=== PATIENT | female | born 1965 | race African-American/Black ===

== ENCOUNTER 2018-02-08 08:11 | Day surgery (SDC) | payer OTHER ==
[2018-01-31 10:56] VITALS: BMI 28.3
[2018-02-08] MEDS ORDERED: BUPIVACAINE HCL/PF 0.5% (5MG/ML) 10 ML VIAL ONE (09:31)
[2018-02-08] MEDS ORDERED: MIDAZOLAM HCL 2 MG/2 ML SINGLE DOSE VIAL ONE ×2 (09:53)
--- NOTE | 2018-02-08 09:53 | HP ---
Admitting History and Physical - Admission Chief Complaint: RUQ abdominal pain History of Present Illness: 52 y.o female with chronic RUQ pain radiating to the back aggravated by fatty meals. US showed no gallstones, HIDA with EF showed biliary hyperkinesia. Abdominal pain persisted after a reasonable period of observation, so was advised cholecystectomy History Source: Patient Limitations to Obtaining History: No Limitations - Past Medical History ...LMP Comment: partial hysterectomy - Past Surgical History Past Surgical History: Yes: Hysterectomy - Smoking History Smoking history: Current every day smoker Have you smoked in the past 12 months: Yes Aproximately how many cigarettes per day: 10 If you are a former smoker, when did you quit?: 01/11/15 - Alcohol/Substance Use Hx Alcohol Use: Yes (occas) Home Medications - Allergies Allergies/Adverse Reactions: Allergies Allergy/AdvReac Type Severity Reaction Status Date / Time No Known Allergies Allergy Verified 02/07/18 11:14 - Home Medications Home Medications: Ambulatory Orders Amitriptyline HCl [Elavil -] 50 mg PO HS 03/24/14 Atorvastatin Ca [Lipitor -] 40 mg PO HS 03/24/14 Ergocalciferol [Drisdol -] 50,000 unit PO WEEKLY 03/24/14 Gabapentin 800 mg PO QID 03/24/14 Oxycodone HCl 10 mg PO TID PRN MDD 3 03/24/14 Vitamin B Complex [B Complex] 1 each PO DAILY 03/24/14 Budesonide/Formeterol Fumarate [SYMBICORT 160/4.5mcg -] 1 inhaler IH DAILY 02/07 Ipratropium/Albuterol Sulfate [Combivent Respimat 20-100 Mcg] 1 puff IN PRN PRN 02/07/18 Losartan Potassium 100 mg PO DAILY 02/08/18 Nifedipine [Nifedipine ER] 60 mg PO DAILY 02/08/18 Pantoprazole Sodium 40 mg PO DAILY 02/08/18 Family Disease History - Family Disease History Family Disease History: Heart Disease: Mother, CA: Father, Brother Physical Examination Vital Signs: Vital Signs Temperature 98.6 F 02/08/18 08:44 Pulse Rate 104 H 02/08/18 08:44 Respiratory Rate 20 02/08/18 08:44 Blood Pressure 129/87 02/08/18 08:44 O2 Sat by Pulse Oximetry (%) 99 02/08/18 08:44 Constitutional: Yes: Well Nourished, No Distress HENT: Yes: WNL Neck: Yes: WNL Cardiovascular: Yes: Regular Rate and Rhythm Respiratory: Yes: CTA Bilaterally Gastrointestinal: Yes: Normal Bowel Sounds, Soft, Tenderness (mild at RUQ) ...Rectal Exam: Yes: Deferred Musculoskeletal: Yes: WNL Extremities: Yes: WNL Edema: No Integumentary: Yes: WNL Neurological: Yes: Alert, Oriented Imaging - Results Ultrasound: Report Reviewed, Image Reviewed Other: Report Reviewed, Image Reviewed (HIDA scan with EF) Problem List - Problems (1) Acalculous cholecystitis Assessment/Plan: Laparoscopic cholecystectomy Code(s): K81.9 - CHOLECYSTITIS, UNSPECIFIED (2) Biliary dyskinesia Assessment/Plan: Laparoscopic cholecystectomy Code(s): K82.8 - OTHER SPECIFIED DISEASES OF GALLBLADDER
[2018-02-08] MEDS ORDERED: ROCURONIUM BROMIDE 50 MG/5 ML VIAL ONE ×2 (10:00)
[2018-02-08] MEDS ORDERED: PROPOFOL 20 ML ONE (10:01)
[2018-02-08] MEDS ORDERED: ceFAZolin SODIUM 1 GM VIAL IVPB ONE (10:02)
[2018-02-08] MEDS ORDERED: LIDOCAINE HCL/PF 2% SDV 5ML VIAL ONE (10:10)
[2018-02-08] MEDS ORDERED: DEXAMETHASONE SOD PHOSPHATE 4 MG/1 ML VIAL ONE (10:10)
[2018-02-08] MEDS ORDERED: GLYCOPYRROLATE 0.2 MG/1 ML VIAL ONE (10:10)
[2018-02-08] MEDS ORDERED: ceFAZolin SODIUM 1 GM VIAL ONE (10:10)
[2018-02-08] MEDS ORDERED: BUPIVACAINE HCL/PF (5 MG/ML) 30 ML VIAL IJ ONE (10:19)
[2018-02-08] MEDS ORDERED: NEOSTIGMINE METHYLSULFATE 0.5 MG/ML - 10 ML MDV ONE (10:49)
--- NOTE | 2018-02-08 11:04 | OP ---
Operative Note - Note: Operative Date: 02/08/18 Pre-Operative Diagnosis: Chronic acalculous cholecystitis with biliary hyperkinesia Operation: Laparoscopic cholecystectomy Findings: gallbladder with no palpable stones Post-Operative Diagnosis: Same as Pre-op Surgeon: Charan Davis Chief Lock Operator: Khadijah Wu Anesthesia: General Specimens Removed: gallbladder Estimated Blood Loss (mls): 2 Operative Report Dictated: Yes
[2018-02-08] MEDS ORDERED: PROMETHAZINE HCL 25 MG/1 ML VIAL IVPUSH PRN (11:59)
[2018-02-08] MEDS ORDERED: ONDANSETRON 4 MG/2 ML VIAL IVPUSH PRN (11:59)
[2018-02-08] MEDS ORDERED: oxyCODONE HCL 5 MG TABLET PO PRN (11:59)
[2018-02-08] MEDS ORDERED: LACTATED RINGERS SOLUTION 1,000 ML IV SCH (12:00)
--- NOTE | 2018-02-08 13:25 | OP ---
DATE OF OPERATION: 02/08/2018 PROCEDURE: Laparoscopic cholecystectomy. PREOPERATIVE DIAGNOSIS: Chronic acalculous cholecystitis with biliary hyperkinesia. POSTOPERATIVE DIAGNOSIS: Chronic acalculous cholecystitis with biliary hyperkinesia. SURGEON: Charan Davis MD VOCATIONAL EDUCATION PROFESSIONAL: ASHUTOSH Pedro ANESTHESIA: General endotracheal. FINDINGS ON PROCEDURE: This is a 52-year-old female who presents with 1-year history of chronic right upper quadrant pain radiating to the back aggravated by fatty meals. Preoperative ultrasound revealed gallbladder with no stones and normal-sized common duct. Patient had GI workup, which revealed normal EGD and colonoscopy. No other findings that would explain the cause of the pain. So, HIDA scan with ejection fraction was done and revealed diagnosis of biliary hyperkinesia. Patient was observed for some period of time, and the pain persisted. So, patient was advised removal of the gallbladder with patient informed that the pain may have 2 components which is the hyperactive gallbladder and maybe a sphincter of Oddi dysfunction. Consent was obtained after discussing the risks, benefits, and alternatives of the procedure. DESCRIPTION OF PROCEDURE: Patient was brought to the operating room and placed in supine position. General endotracheal anesthesia was administered. The abdomen was prepped and draped in the usual sterile fashion. Using 0.5% Marcaine, local anesthesia was administered to the proposed incision sites. The peritoneal cavity was entered using the Optiview technique via a 5-mm umbilical incision using a 5-mm 30-degree scope inserted in a 5-mm optical port. Pneumoperitoneum was established. The patient was then placed in reverse Trendelenburg [id number] position. The 11-mm port was inserted at the subxiphoid region and two 5-mm ports were inserted at the right subcostal region. The gallbladder delivery was noted to be a little on the floppy side, and the gallbladder fundus was grasped and retracted superiorly. The infundibulum was grasped and retracted inferolaterally to expose the hepatocystic triangle. The distal peritoneum covering the triangle was scored using the hook dissector connected to monopolar cautery. Further dissection using [place] dissector was done to expose the cystic duct and the cystic artery. The proximal gallbladder was resected from the liver bed to create the critical view of safety. The cystic duct and cystic artery were clipped at 3 points followed by transection leaving 2 clips at the cystic duct and cystic artery stumps. The gallbladder was then resected from its bed in antegrade fashion using the walter dissector connected to monopolar cautery. Upon completion of the resection, the gallbladder was placed in an Endobag and extracted via the subxiphoid port. The liver bed was inspected and was noted to be free of active bleeding. The pneumoperitoneum was evacuated, and the ports were removed. The wounds were closed with subcuticular Biosyn 4-0 sutures reinforced with Dermabond. The patient was successfully extubated and transferred to the post-anesthesia care unit in satisfactory condition. ESTIMATED BLOOD LOSS: About 2 mL. WOUND CLASS: Clean-contaminated. The patient received 2 g of Ancef prior to the start of the procedure. Silvestre [id number]
[2018-02-08] MEDS ORDERED: oxyCODONE HCL 5 MG TABLET ONE ×2 (14:09→14:50)
[2018-02-08 14:25] VITALS: TEMP 97.8
--- NOTE | 2018-02-08 14:27 | SURG ---
Surgery Bed Laborer Note Bed Laborer: Khadijah Wu PA-C Date of Service: 02/08/18 Diagnosis: Chronic acalculous cholecystitis with biliary dyskinesia Procedure: Laparoscopic cholecystectomy I was present for the entirety of the operative procedure. For further detail, please refer to operative report. Visit type - Case Type Case Type: Scheduled - Emergency Emergency Visit: No - New patient This patient is new to me today: Yes Date on this admission: 02/08/18
[2018-02-08 17:27] VITALS: BP 160/90; PULSE 96
--- NOTE | 2018-02-11 18:59 | PATH ---
Surgical Pathology Report Patient Name: RIO PAUL [facility]. Rec. #: [id number] /Age/Gender: 1965 (Age: 52) / F Account: [id number] Location: [facility] SURGICAL Taken: 02/08/2018 Received: 02/08/2018 Reported: 02/11/2018 Physicians: Charan Davis M.D. Specimen(s) Received GALLBLADDER Clinical History Chronic acalculous cholecystitis Final Diagnosis GALLBLADDER, CHOLECYSTECTOMY: CHRONIC CHOLECYSTITIS. ONE REACTIVE LYMPH NODE. Electronically Signed Coco Ordoñez M.D. Gross Description Received in formalin, labeled "gallbladder," is a 6.5 x 2.5 x 2.4 cm. gallbladder with a 0.2 cm. in length portion of cystic duct attached. The outer surface is colunga whitt and varies from smooth to shaggy. The lumen contains green, tenacious bile. There are no choleliths are present within the lumen or the container. The mucosa is colunga and velvety. The wall of the gallbladder measures 0.1 cm. in thickness. Management Aide sections are submitted in one cassette. 02/08/2018 saudi02/08/2018
== END 2018-02-08 17:00 | disposition home or self-care (01) ==
LOC: JASU-SURG 08:11
PROVIDERS: ATTEND Surgery
PROC: 0FT44ZZ Resection of Gallbladder, Percutaneous Endoscopic Approach (ICD-10-PCS; principal; 2018-02-08 09:30)
DX: K81.1 Chronic cholecystitis (principal); K83.8 Other specified diseases of biliary tract
CPT/HCPCS: 88304-TC; 94760

== ENCOUNTER 2018-10-18 10:03 | Observation (INO) | payer OTHER ==
[2018-10-17 14:43] VITALS: BMI 27.4
--- NOTE | 2018-10-18 09:13 | HP ---
Satellite [facility] - Chief Complaint Chief Complaint: Difficulty swallowing, enlarged thyroid for over a year. History Source: Patient Limitations to Obtaining History: No Limitations - Past Medical History Allergies/Adverse Reactions: Allergies Allergy/AdvReac Type Severity Reaction Status Date / Time No Known Allergies Allergy Verified 02/07/18 11:14 Pulmonary: Yes: Asthma Gastrointestinal: Yes: Gastritis ...LMP Comment: PARTIAL HYSTERECTOMY - Current Medications Current Medications: Home Medications Medication Instructions Recorded Amitriptyline HCl [Elavil -] 50 mg PO HS 03/24/14 Atorvastatin Ca [Lipitor -] 40 mg PO HS 03/24/14 Ergocalciferol [Drisdol -] 50,000 unit PO WEEKLY 03/24/14 Gabapentin 800 mg PO QID 03/24/14 Oxycodone HCl 10 mg PO TID PRN MDD 3 03/24/14 Vitamin B Complex [B Complex] 1 each PO DAILY 03/24/14 Budesonide/Formeterol Fumarate 1 inhaler IH BID 02/07/18 [SYMBICORT 160/4.5mcg -] Losartan Potassium 100 mg PO DAILY 02/08/18 Nifedipine [Nifedipine ER] 60 mg PO DAILY 02/08/18 Pantoprazole Sodium 40 mg PO DAILY 02/08/18 Albuterol Sulfate Inhaler - 1 - 2 inh PO PRN 10/17/18 [Ventolin Hfa Inhaler -] Aspirin Coated [Ecotrin -] 81 mg PO DAILY 10/17/18 Cyclobenzaprine HCl [Flexeril 10 10 mg PO PRN PRN 10/17/18 mg] Cyproheptadine [Periactin -] 4 mg PO BID 10/17/18 Mirtazapine [Remeron -] 15 mg PO DAILY 10/17/18 Satellite Physical Exam - Physical Examination ENT: Other (Enlarged thyroid gland causing obstruction. palpable nodule in the right lobe of thyroid gland.) Satellite Impression/Plan - Impression/Plan Impression: Multinodular thyroid goiter , with a large dominant nodule in the upper pole of the right lobe of thyroid gland , benign on cytology. Other smaller nodules on the legft lobe of thhyroid gland as well. Operative Procedure: Thyroidectomy , subtotal / Total thyroidectomy. Procedure has been explained , with risks , benefits and complications, including but not limited to, bleeding , seroma, hematoma, recurrent laryngeal nerve weakness, hoarseness, change in voice, hypocalcemia and hypoparathyroidism, and hypothyroidism. Consent obtained. Date to be Performed: 10/18/18
[2018-10-18] MEDS ORDERED: ceFAZolin SODIUM 1 GM VIAL IVPB ONE (12:28)
[2018-10-18] MEDS ORDERED: BUPIVACAINE HCL/PF 0.5% (5MG/ML) 10 ML VIAL ONE (14:05)
[2018-10-18] MEDS ORDERED: BUPIVACAINE HCL/PF (5 MG/ML) 30 ML VIAL IJ ONE (14:15)
[2018-10-18] MEDS ORDERED: PROMETHAZINE HCL 25 MG/1 ML VIAL IVPUSH PRN ×2 (14:38→15:03)
[2018-10-18] MEDS ORDERED: ONDANSETRON 4 MG/2 ML VIAL IVPUSH PRN ×2 (14:38→15:03)
[2018-10-18] MEDS ORDERED: oxyCODONE HCL 5 MG TABLET PO PRN (14:38)
[2018-10-18] MEDS ORDERED: ACETAMINOPHEN 1000 MG/100 ML VIAL (NON FORMULARY) IVPB ONE (14:39)
--- NOTE | 2018-10-18 14:44 | OP ---
Operative Note - Note: Operative Date: 10/18/18 Pre-Operative Diagnosis: Multinodular thyroid goiter , dysphagia. Operation: Subtotal thyroidectomy , ( Right total lobectomy , left partial lobectomy, removal of lower ploe and body of the left lobe). Use of Nervana nerve monitor. Findings: Large nodule on the body and upper pole of the right lobe, small firm nodule on the inferior pole of the left lobe of the thyroid gland. Post-Operative Diagnosis: Same as Pre-op Surgeon: Elsie Pascual Geographic Information System Surveyor: Khadijah Wu Anesthesiologist/ANGULAR JS DEVELOPER: Rasta Bustillo Anesthesia: General Specimens Removed: Right total lobectomy , isthmus and left lower pole and body ( partial), of the thyroid gland. Estimated Blood Loss (mls): 10
[2018-10-18] MEDS: ALBUTEROL SO4 0.083% IH SOL 2.5 MG/3 ML VIAL.NEB. NEB ONE ×2 (14:45→17:01)
[2018-10-18] MEDS ORDERED: ALBUTEROL SO4 0.083% IH SOL 2.5 MG/3 ML VIAL.NEB. NEB ONE (15:03)
[2018-10-18] MEDS: ACETAMINOPHEN 1000 MG/100 ML VIAL (NON FORMULARY) IVPB ONE ×2 (15:04→17:01)
--- NOTE | 2018-10-18 15:18 | SURG ---
Surgery Painting Machine Operator Note Painting Machine Operator: Khadijah Wu PA-C Date of Service: 10/18/18 Diagnosis: Multinodular thyroid goiter , dysphagia. Procedure: Subtotal thyroidectomy , ( Right total lobectomy , left partial lobectomy, removal of lower ploe and body of the left lobe). Use of Nervana nerve monitor. I was present for the entirety of the operative procedure. For further detail, please refer to operative report. Visit type - Case Type Case Type: Scheduled - Emergency Emergency Visit: No - New patient This patient is new to me today: Yes Date on this admission: 10/18/18
[2018-10-18] MEDS: oxyCODONE HCL 5 MG TABLET PO PRN ×3 (17:19→23:52)
[2018-10-19] MEDS: oxyCODONE HCL 5 MG TABLET PO PRN ×3 (03:33→14:02)
--- NOTE | 2018-10-19 09:17 | OP ---
DATE OF OPERATION: 10/18/2018 PREOPERATIVE DIAGNOSIS: Multi thyroid goiter and dysphagia. POSTOPERATIVE DIAGNOSIS: Multi thyroid goiter and dysphagia. OPERATIVE PROCEDURE: 1. Subtotal thyroidectomy (right total lobectomy, isthmusectomy, left partial lobectomy, i.e. removal of lower pole and body of the left lobe). 2. Use of Nerveana Neuromonitoring Device. SURGEON: Apurva Pascual MD RAILROAD CAR REPAIRMAN: ASHUTOSH Pedro ANESTHESIA: General anesthesia. OPERATIVE DESCRIPTION: This 53-year-old woman was found to have dominant nodule in the right lobe of the thyroid greater than 2 cm. In the last year, she has been having progressive dysphagia. She has 2 other smaller nodules in the left lobe of the thyroid gland. Patient was brought in for subtotal thyroidectomy, possible total thyroidectomy, and if it is suggested this to be benign, it fits that classification, too. Consent was obtained. Risks, benefits, and complications had been discussed with the patient. Patient had endotracheal tube placed with the Nerveana Neuromonitoring Device and appropriate leads placed in order. The neck was positioned in extension, painted and draped. Time-out was called. An incision was made 1 fingerbreadth above the clavicle from one sternocleidomastoid muscle to another. This was deepened into the skin, subcutaneous tissue, and the platysma muscle. The superior and inferior skin flaps were then raised within the platysma and the deep cervical fascia, superiorly up to the hyoid bone, inferiorly anterior to and below the clavicle on either side. The sternocleidomastoid muscle was freed from the flap on either side. The strap muscles were then divided in the midline from the hyoid bone down to the suprasternal notch. Hemostasis was achieved and maintained throughout the procedure using hemoclips, the LigaSure, and ligatures with 3-0 silk. The right side of the strap muscles was then retracted, and the thyroid gland was exposed. There was a large dominant nodule on the right lobe of the thyroid gland. On the left lobe, there was a small nodule on the inferior pole of the left lobe of the thyroid gland. The right lobe of the thyroid gland was then mobilized medially. The inferior thyroid vessels were divided as close to the gland as possible between clips and LigaSure. The superior thyroid vessels were also divided as close to the gland as possible between the hemoclips and the LigaSure. The superior parathyroid gland on the right side was preserved with its blood supply intact. The inferior thyroid vessels were also then divided as close to the gland as possible, mobilizing the inferior pole on the right lobe of the thyroid gland sparing the parathyroid gland with its blood vessels and the recurrent laryngeal nerve intact. The gland was mobilized medially across the pretracheal fascial plane after dividing the Berrys ligament and the blood vessels and around the Berrys ligament. Then gland was carried along with the isthmus towards the left side of the midline. Hemostasis was satisfactory after the right thyroid lobe was removed and close to the left side. The strap muscles on the left side were then retracted. The inferior thyroid vessels were divided as close to the gland as possible as well as the middle thyroid vein. The left recurrent laryngeal nerve was identified and preserved throughout its length. The gland was then freed from its attachment to the trachea and the larynx. Two Thao clamps were then placed within the upper pole and the body of the left lobe of the thyroid gland. The gland was then divided and sent to Pathology for frozen section. Grossly, the nodule appeared to be a hemorrhagic nodule and no further dissection was done. Hemostasis was satisfactory throughout the procedure. The left lobe of the thyroid gland attached to the upper pole was then oversewn with continuous 3-0 Vicryl sutures in a hemostatic fashion in a running locking fashion. Hemostasis was satisfactory at the completion of the procedure. The wound was irrigated with saline. There was no active bleeding. The upper pole of the left lobe of the thyroid gland with part of the body was left intact in the patient. All 4 parathyroid glands were left intact with the blood supply intact, as well. The strap muscles were then approximated with interrupted [id number] 3-0 Vicryl sutures. The platysma was approximated with buried interrupted 3-0 Vicryl sutures. The skin was approximated with continuous 4-0 Monocryl sutures in a running subcuticular fashion. Sponge count and instrument count were correct. Estimated blood loss was less than 10 mL. Marcaine 0.5% was injected into the skin. Patient was extubated. Both vocal cords mobile and speaking normally. Silvestre [id number]
--- NOTE | 2018-10-19 10:16 | PN ---
Progress Note (short form) - Note Progress Note: Anesthesia post op Pt seen and examined S:alert and awake eating breakfast c/o spitting O; Vital Signs Temperature 98.3 F 10/19/18 06:00 Pulse Rate 84 10/19/18 06:00 Respiratory Rate 20 10/19/18 06:00 Blood Pressure 141/83 10/19/18 06:00 O2 Sat by Pulse Oximetry (%) 95 10/18/18 16:56 A/P:s/p right thyroid lobectomy No apparent anesthesia related complications. VSS Voices concern of getting discharged home. Nurse to talk to Dr. Pascual for discharge Continue current care Rasta Bustillo MD
--- NOTE | 2018-10-19 12:30 | PN ---
Progress Note, Physician - Current Medication List Current Medications: Active Medications Ondansetron HCl (Zofran Injection) 4 mg IVPUSH Q6H PRN PRN Reason: NAUSEA AND/OR VOMITING Oxycodone HCl (Roxicodone -) 10 mg PO Q4H PRN PRN Reason: PAIN LEVEL 6-10 Stop: 10/19/18 14:37 Last Admin: 10/19/18 07:41 Dose: 10 mg Promethazine HCl (Phenergan Injection -) 12.5 mg IVPUSH Q6H PRN PRN Reason: NAUSEA-FOR RESCUE AFTER 15 MIN - Objective Vital Signs: Vital Signs Temperature 98.0 F 10/19/18 11:48 Pulse Rate 105 H 10/19/18 11:48 Respiratory Rate 18 10/19/18 11:48 Blood Pressure 177/97 H 10/19/18 11:48 O2 Sat by Pulse Oximetry (%) 95 10/18/18 16:56 Assessment/Plan Surgery: Patient ism alert, sitting in bed. Neck wound is clean , no seroma, no hematoma. Voice is normal. Ambulating. Patient does not want to go home. She is advised to come to my office on for follow uo. Prescriptions given for pain. Surgical procedure was explained. She wants to go home. Appealing her discharge. Consult primary care service.
[2018-10-19] MEDS ORDERED: CYCLOBENZAPRINE HCL 10 MG TABLET (FP) PO PRN ×3 (15:10→18:31)
[2018-10-19] MEDS ORDERED: ALBUTEROL SO4 0.083% IH SOL 2.5 MG/3 ML VIAL.NEB. NEB PRN ×2 (15:11→18:31)
[2018-10-19] MEDS ORDERED: NIFEdipine E.R 60 MG TABLET (UD) PO SCH ×2 (15:15→15:22)
[2018-10-19] MEDS ORDERED: PANTOPRAZOLE 40 MG TABLET (FP) PO SCH (15:15)
[2018-10-19] MEDS ORDERED: ASPIRIN COATED 81 MG TABLET.EC PO SCH (15:15)
[2018-10-19] MEDS ORDERED: VITAMIN B COMPLEX W/C COMBO TABLET (FP) PO SCH (15:15)
[2018-10-19] MEDS ORDERED: LOSARTAN POTASSIUM 50 MG TABLET (FP) PO SCH (15:15)
[2018-10-19] MEDS ORDERED: ALBUTEROL SO4 8 GM HFA INHALER IH SCH (15:15)
--- NOTE | 2018-10-19 15:17 | CONSULT ---
Consultation: REQUESTING PROVIDER: CONSULT REQUEST: We have been asked to medically evaluate this patient for . HISTORY OF PRESENT ILLNESS: Pt is a 53 y/o F with PMH HTN, HLD, GERD, Asthma, goiter who is post op day 1 for subtotal thyroidectomy for goiter-related dysphagia. Pt feels well at this time, but is anxious about going home alone and states she wants to stay in the hospital 1 more day. She has cough productive of clear sputum, and complains of mild pain at the surgical site. No other complaints at this time. She has been tolerating drinking liquids, but hasn't successfully swallowed solid food, yet. Denies fever, chills, nausea, vomiting, diarrhea, chest pain, sob. REVIEW OF SYSTEMS: CONSTITUTIONAL: Absent: fever, chills, diaphoresis, generalized weakness, malaise, loss of appetite, weight change HEENT: difficulty swallowing Absent: rhinorrhea, nasal congestion, throat pain, throat swelling, , mouth swelling, ear pain, eye pain, visual changes CARDIOVASCULAR: Absent: chest pain, syncope, palpitations, irregular heart rate, lightheadedness , peripheral edema RESPIRATORY: Absent: cough, shortness of breath, dyspnea with exertion, orthopnea, wheezing, stridor, hemoptysis GASTROINTESTINAL: Absent: abdominal pain, abdominal distension, nausea, vomiting, diarrhea, constipation, melena, hematochezia GENITOURINARY: Absent: dysuria, frequency, urgency, hesitancy, hematuria, flank pain, genital pain MUSCULOSKELETAL: Absent: myalgia, arthralgia, joint swelling, back pain, neck pain SKIN: Absent: rash, itching, pallor HEMATOLOGIC/IMMUNOLOGIC: Absent: easy bleeding, easy bruising, lymphadenopathy, frequent infections ENDOCRINE: Absent: unexplained weight gain, unexplained weight loss, heat intolerance, cold intolerance NEUROLOGIC: Absent: headache, focal weakness or paresthesias, dizziness, unsteady gait, seizure, mental status changes, bladder or bowel incontinence PSYCHIATRIC: Absent: anxiety, depression, suicidal or homicidal ideation, hallucinations. PHYSICAL EXAMINATION Vital Signs - 24 hr 10/18/18 10/18/18 10/18/18 15:20 15:35 15:50 Temperature Pulse Rate 110 H 105 H 96 H Respiratory 20 16 18 Rate Blood Pressure 131/76 111/72 103/64 O2 Sat by Pulse 98 95 96 Oximetry (%) 10/18/18 10/18/18 10/19/18 16:09 16:56 06:00 Temperature 98.1 F 97.8 F 98.3 F Pulse Rate 94 H 100 H 84 Respiratory 16 18 20 Rate Blood Pressure 110/70 126/78 141/83 O2 Sat by Pulse 95 Oximetry (%) 10/19/18 10/19/18 11:48 14:11 Temperature 98.0 F 98.0 F Pulse Rate 105 H 83 Respiratory 18 18 Rate Blood Pressure 177/97 H 160/89 O2 Sat by Pulse Oximetry (%) Gen: slightly anxious appearing, comfortable, sitting in bed HEENT: NCAT, EOMI, mosit membranes Neck: incision anterior supraclavicular cdi. ttp at surgical site. No bruits. Unable to assess thyroid due to discomfort of patient. No stridor. Cardio: hyperdynamic laterally displaced PMI, s1s2, tachycardic, no mrg appreciated Pulm: late expiratory wheeze diffusely, but especially in the inferior lung tran Abd: soft, nondistended, nontender Ext: no swelling, bounding pulses, no edema Neuro: CN 2-12 intact, normal strength and sensation Active Medications Generic Name Dose Route Start Last Admin Trade Name Freq PRN Reason Stop Dose Admin Albuterol Sulfate 1 - 2 puff 10/19/18 15:15 Ventolin Hfa Inhaler - IH PRN YAMILA Albuterol Sulfate 1 amp 10/19/18 15:11 Ventolin 0.083% Nebulizer Soln - NEB Q4H PRN SHORT OF BREATH/WHEEZING Aspirin 81 mg 10/19/18 15:15 Ecotrin - PO DAILY YAMILA Atorvastatin Calcium 40 mg 10/19/18 22:00 Lipitor - PO HS YAMILA Budesonide/Formoterol Fumarate puff 10/19/18 22:00 Symbicort 160/4.5mcg - IH BID YAMILA Cyclobenzaprine HCl 10 mg 10/19/18 15:10 Flexeril - PO PRN PRN PAIN Ergocalciferol 50,000 unit 10/19/18 15:15 Drisdol - PO WEEKLY YAMILA Mirtazapine 15 mg 10/19/18 15:15 Remeron - PO DAILY YAMILA Non-Formulary Medication 100 mg 10/19/18 15:15 Losartan Potassium [Losartan Potassium] PO DAILY YAMILA Non-Formulary Medication 60 mg 10/19/18 15:15 Nifedipine [Nifedipine Er] PO DAILY YAMILA Non-Formulary Medication 1 each 10/19/18 15:15 Vitamin B Complex [B Complex] PO DAILY YAMILA Ondansetron HCl 4 mg 10/18/18 15:03 Zofran Injection IVPUSH Q6H PRN NAUSEA AND/OR VOMITING Pantoprazole Sodium 40 mg 10/19/18 15:15 Protonix - PO DAILY YAMILA Promethazine HCl 12.5 mg 10/18/18 15:03 Phenergan Injection - IVPUSH Q6H PRN NAUSEA-FOR RESCUE AFTER 15 MIN ASSESSMENT/PLAN: Pt is a 53 y/o F with PMH goiter, HTN, HLD, asthma, chronic L shoulder "nerve block" who is being seen post op day 1 for subtotal thyroidectomy. #Thyroidectomy (10/18/2018) -R total lobectomy with L partial lobectomy -Post op hyperdynamic cardiac exam. ? thyrotoxicosis -endocrinology consult - Dr. Powers appreciated. Recs beta marina, TSH, T4 -Propranolol 40 bid #HTN -restart home meds Nifedipine and Losartan. Not to be given all together with beta marina -monitor BP #Asthma -wheezing on exam -restart PRN albuterol and daily symbicort #GERD -continue with Pantoprazole 40 #FEN -not on fluids -labs pending -na controlled diet #dispo -med/surg Edy Kumar MD PGY-2 IM Dispo: We will continue to follow the patient. Thank you for this consultative opportunity. Visit type - Emergency Visit Emergency Visit: No - New Patient This patient is new to me today: Yes Date on this admission: 10/19/18 - Critical Care Critical Care patient: No
[2018-10-19] MEDS ORDERED: NIFEdipine E.R. 30 MG TABLET (FP) PO ONE (15:31)
[2018-10-19] MEDS ORDERED: IBUPROFEN 400 MG TABLET (FP) PO PRN ×2 (15:32→18:31)
[2018-10-19] MEDS ORDERED: ACETAMINOPHEN 325 MG TABLET (FP) PO PRN ×2 (15:34→18:31)
--- NOTE | 2018-10-19 15:37 | PN ---
Teaching Attending Note Name of Resident: Edy Kumar ATTENDING PHYSICIAN STATEMENT I saw and evaluated the patient. I reviewed the resident's note and discussed the case with the resident. I agree with the resident's findings and plan as documented. SUBJECTIVE: was asked by Dr. Pascual to see patient while in hospital to help with her medications 53 y/o lady with h/o HTN, multinodular goiter, L shoulder pain, anxiety , poor appetite, who presented to hospital for subtotal thyroidectomy . We were asked to evaluate for medication management. patient has some pain in lower neck, has difficulty getting secretions out. No ADAMS, no SOB, no fever no dysuria or diarrhea . she denies any diagnosis of hyperor hypothyroidism before her sx. also reports a benign thyroid Biopsy results OBJECTIVE: NAD, Awake, a little anxious, restless. ? exophthalmos. round pupils, reactive to light. no facial droop. MMM. EOMI. lower neck transverse scar with no erythema or discharge. normal voide. tenderness to palpation around the neck wound CV: Regular rhythm, tachy , no MRG Lungs: scattered wheezes. good air entry Abd: soft, TTP in all quadrants , nl BS , no rebound tenderness . Ext: no edema or erythema, no tremor seen. No signs of fungal infection ASSESSMENT AND PLAN: 53 y/o lady with h/o HTN, multinodular goiter, L shoulder pain, anxiety , poor appetite, who presented to hospital for subtotal thyroidectomy . Medicine team was asked to evaluate for medication management. 1- S/P Subtotal thyroidectomy: concern for post-Op thyrotoxicosis given signs of anxiety, restlessness, hypertension and tachycardia. those sx could be due to anxiety and not taking her HTN meds this am as well - start proparnolol - give HTN meds ( nifedipine for now) - endocrine , Dr. Austin was called in a consult and recommended TSH and T4 level. - will place on tele 2- H/o Asthma: wheezing on exam . give albuterol Nebs 3- HTN urgency: due to no taking HTN meds and ?Post-oP thyrotoxicosis - resume nifedipine. - BB for now. - if needed can use losartan if BP tolerates. 4- Check CMP and CBC incentive spirometer DVT Px .
[2018-10-19 16:32] LABS: BASO % 0.6 % (0-2.0); EOS % 1.2 % (0-4.5); HEMATOCRIT 41.5 % (32.4-45.2); HEMOGLOBIN 13.7 GM/dL (10.7-15.3); LYMPH % 30.2 % (8-40); MCH 31.3 pg (25.7-33.7); MCHC 32.9 g/dl (32.0-36.0); MEAN CELL VOLUME 95.2 fl (80-96); MEAN PLT VOLUME 8.8 fl (7.5-11.1); MONO % 11.8 % (3.8-10.2); NEUT % 56.2 % (42.8-82.8); PLATELET COUNT 360 K/MM3 (134-434); RBC 4.36 M/mm3 (3.60-5.2); RDW 14.5 % (11.6-15.6); WHITE BLOOD COUNT 11.2 K/mm3 (4.0-10.0)
[2018-10-19] MEDS ORDERED: PT OWN MED DRAWER 7, Y5N ONE (17:12)
[2018-10-19 17:17] LABS: ALBUMIN 3.8 g/dl (3.4-5.0); ALK PHOS 145 U/L (45-117); ANION GAP 8 MMOL/L (8-16); BILIRUBIN,TOTAL 0.3 mg/dL (0.2-1); BLOOD UREA NITROGEN 19 mg/dL (7-18); CHLORIDE 99 mmol/L (98-107); CO2 28 mmol/L (21-32); GLUCOSE,RANDOM 126 mg/dL (74-106); POTASSIUM 3.4 mmol/L (3.5-5.1); SGOT/AST 62 U/L (15-37); SGPT/ALT 136 U/L (13-61); SODIUM 135 mmol/L (136-145); TOT PROT 7.5 g/dl (6.4-8.2)
[2018-10-19] MEDS ORDERED: POTASSIUM CHLORIDE TABS 20 MEQ TABLET.ER (FP) PO ONE ×2 (17:35→21:45)
[2018-10-19] MEDS ORDERED: SODIUM CHLORIDE 1,000 ML IV SCH (17:45)
[2018-10-19] MEDS ORDERED: ONDANSETRON 4 MG/2 ML VIAL IVPUSH PRN (18:31)
[2018-10-19] MEDS ORDERED: PROMETHAZINE HCL 25 MG/1 ML VIAL IVPUSH PRN (18:31)
[2018-10-19] MEDS: BUDESONIDE/FORMETEROL FUMARATE 160/4.5 mcg INHALER IH SCH (21:45)
[2018-10-19] MEDS: ATORVASTATIN CA 40 MG TABLET (FP) PO SCH (21:45)
[2018-10-19] MEDS: MIRTAZAPINE 15 MG TABLET (FP) PO SCH (21:45)
--- NOTE | 2018-10-19 21:45 | CONSULT ---
Consult Consult Specialty:: endocrine Referred by:: dr.rao bishop Reason for Consultation:: post op thyroidectomy - History of Present Illness Chief Complaint: neck discomfort History of Present Illness: 53 y/o F with thyroid goiter, sp partial thyroidectomy,HTN, HLD, GERD, Asthma, who is post op day 1 for subtotal thyroidectomy for goiter-related dysphagia. Pt felt anxious at the time of dc,since she live alone and states she wants to stay in the hospital 1 more day. She has cough productive of clear sputum, and complains of mild pain around the surgical sight. - Past Medical History Pulmonary: Yes: Asthma Gastrointestinal: Yes: Gastritis ...LMP Comment: PARTIAL HYSTERECTOMY - Past Surgical History Past Surgical History: Yes: Hysterectomy - Alcohol/Substance Use Hx Alcohol Use: Yes (occas) - Smoking History Smoking history: Current every day smoker Have you smoked in the past 12 months: Yes Aproximately how many cigarettes per day: 10 If you are a former smoker, when did you quit?: 01/11/15 Home Medications - Allergies Allergies/Adverse Reactions: Allergies Allergy/AdvReac Type Severity Reaction Status Date / Time No Known Allergies Allergy Verified 02/07/18 11:14 - Home Medications Home Medications: Ambulatory Orders Atorvastatin Ca [Lipitor -] 40 mg PO HS 03/24/14 Ergocalciferol [Drisdol -] 50,000 unit PO WEEKLY 03/24/14 Vitamin B Complex [B Complex] 1 each PO DAILY 03/24/14 Budesonide/Formeterol Fumarate [SYMBICORT 160/4.5mcg -] 1 inhaler IH BID Losartan Potassium 100 mg PO DAILY 02/08/18 Nifedipine [Nifedipine ER] 60 mg PO DAILY 02/08/18 Pantoprazole Sodium 40 mg PO DAILY 02/08/18 Albuterol Sulfate Inhaler - [Ventolin Hfa Inhaler -] 1 - 2 inh PO PRN 10/17/18 Aspirin Coated [Ecotrin -] 81 mg PO DAILY 10/17/18 Cyclobenzaprine HCl [Flexeril 10 mg] 10 mg PO PRN PRN 10/17/18 Mirtazapine [Remeron -] 15 mg PO DAILY 10/17/18 Family Disease History - Family Disease History Family Disease History: Heart Disease: Mother, CA: Father, Brother Review of Systems - Review of Systems Constitutional: reports: Weakness Eyes: reports: No Symptoms HENT: reports: Difficult Swallowing Neck: reports: Decreased ROM Cardiovascular: reports: Shortness of Breath Respiratory: reports: Exercise Intolerance Gastrointestinal: reports: No Symptoms Genitourinary: reports: No Symptoms Musculoskeletal: reports: No Symptoms Integumentary: reports: No Symptoms Neurological: reports: No Symptoms Psychiatric: reports: No Symptoms Physical Exam Vital Signs: Vital Signs Temperature 98.8 F 10/19/18 17:53 Pulse Rate 93 H 10/19/18 17:53 Respiratory Rate 27 H 10/19/18 17:54 Blood Pressure 177/93 H 10/19/18 17:53 O2 Sat by Pulse Oximetry (%) 95 10/19/18 17:54 Constitutional: Yes: Anxious Eyes: Yes: EOM Intact HENT: Yes: Normocephalic Neck: Yes: Trachea Midline, Tenderness Cardiovascular: Yes: Tachycardia Respiratory: Yes: CTA Bilaterally Gastrointestinal: Yes: Normal Bowel Sounds ...Rectal Exam: Yes: Deferred Renal/: Yes: WNL Musculoskeletal: Yes: WNL Extremities: Yes: WNL Edema: No Neurological: Yes: Alert, Oriented Labs: CBC, BMP 10/19/18 16:00 10/19/18 16:00 Problem List - Problems (1) Acalculous cholecystitis Code(s): K81.9 - CHOLECYSTITIS, UNSPECIFIED (2) Chronic pain syndrome Code(s): G89.4 - CHRONIC PAIN SYNDROME (3) Essential hypertension Code(s): I10 - ESSENTIAL (PRIMARY) HYPERTENSION (4) Ganglion cyst of right foot Code(s): M67.471 - GANGLION, RIGHT ANKLE AND FOOT (5) Hypercholesterolemia Code(s): E78.0 - PURE HYPERCHOLESTEROLEMIA * DO NOT USE * (6) Shoulder pain Code(s): M25.519 - PAIN IN UNSPECIFIED SHOULDER Assessment/Plan post op partial thyroidectomy hypothyroidism hypertension anxiety gerd,dysphagia hld Abnormal Lab Results 10/19/18 10/19/18 16:00 16:00 WBC 11.2 H Monocytes % 11.8 H Sodium 135 L Potassium 3.4 L BUN 19 H Random Glucose 126 H AST 62 H ALT 136 H Alkaline Phosphatase 145 H Laboratory Results - last 24 hr 10/19/18 10/19/18 10/19/18 15:28 16:00 16:00 WBC 11.2 H RBC 4.36 Hgb 13.7 Hct 41.5 MCV 95.2 MCH 31.3 MCHC 32.9 RDW 14.5 D Plt Count 360 MPV 8.8 Absolute Neuts (auto) 6.3 Neutrophils % 56.2 Lymphocytes % 30.2 Monocytes % 11.8 H Eosinophils % 1.2 Basophils % 0.6 Nucleated RBC % 0 Sodium 135 L Potassium 3.4 L Chloride 99 Carbon Dioxide 28 Anion Gap 8 BUN 19 H Creatinine 1.0 Creat Clearance w eGFR 57.78 Random Glucose 126 H Calcium 9.0 Total Bilirubin 0.3 AST 62 H ALT 136 H Alkaline Phosphatase 145 H Total Protein 7.5 Albumin 3.8 TSH 2.55 Free T4 0.89 plan: repeat tsh free t4 as oupatient no need for synthroid now concur with obsevation and dc in am control bp
[2018-10-19] MEDS ORDERED: BUDESONIDE/FORMETEROL FUMARATE 160/4.5 mcg INHALER IH SCH (22:00)
[2018-10-19] MEDS ORDERED: ATORVASTATIN CA 40 MG TABLET (FP) PO SCH (22:00)
[2018-10-19] MEDS ORDERED: MIRTAZAPINE 15 MG TABLET (FP) PO SCH (22:00)
[2018-10-20 07:44] LABS: BASO % 0.5 % (0-2.0); EOS % 2.4 % (0-4.5); HEMATOCRIT 42.9 % (32.4-45.2); HEMOGLOBIN 14.2 GM/dL (10.7-15.3); LYMPH % 34.5 % (8-40); MCH 31.8 pg (25.7-33.7); MCHC 33.2 g/dl (32.0-36.0); MEAN CELL VOLUME 95.8 fl (80-96); MEAN PLT VOLUME 8.7 fl (7.5-11.1); MONO % 10.4 % (3.8-10.2); NEUT % 52.2 % (42.8-82.8); PLATELET COUNT 382 K/MM3 (134-434); RBC 4.48 M/mm3 (3.60-5.2); RDW 14.7 % (11.6-15.6); WHITE BLOOD COUNT 8.5 K/mm3 (4.0-10.0)
[2018-10-20 07:45] LABS: ALBUMIN 3.6 g/dl (3.4-5.0); ALK PHOS 139 U/L (45-117); ANION GAP 7 MMOL/L (8-16); BILIRUBIN,TOTAL 0.5 mg/dL (0.2-1); BLOOD UREA NITROGEN 17 mg/dL (7-18); CALCIUM 9.4 mg/dL (8.5-10.1); CHLORIDE 106 mmol/L (98-107); CO2 27 mmol/L (21-32); CREATININE 0.7 mg/dL (0.55-1.3); GLUCOSE,RANDOM 83 mg/dL (74-106); POTASSIUM 4.4 mmol/L (3.5-5.1); SGOT/AST 40 U/L (15-37); SGPT/ALT 111 U/L (13-61); SODIUM 141 mmol/L (136-145)
[2018-10-20] MEDS ORDERED: oxyCODONE HCL 5 MG TABLET PO ONE (07:59)
[2018-10-20] MEDS: PANTOPRAZOLE 40 MG TABLET (FP) PO SCH (09:54)
[2018-10-20] MEDS: ASPIRIN COATED 81 MG TABLET.EC PO SCH (09:54)
[2018-10-20] MEDS: NIFEdipine E.R 60 MG TABLET (UD) PO SCH (09:54)
[2018-10-20] MEDS: BUDESONIDE/FORMETEROL FUMARATE 160/4.5 mcg INHALER IH SCH ×2 (09:57→21:48)
[2018-10-20] MEDS: VITAMIN B COMPLEX W/C COMBO TABLET (FP) PO SCH (09:58)
[2018-10-20] MEDS ORDERED: ERGOCALCIFEROL (VIT D2) 50,000 UNIT (1.25 MG) CAPSULE PO SCH ×2 (10:00)
--- NOTE | 2018-10-20 14:39 | DS ---
Physical Examination Vital Signs: Vital Signs Temperature 98.4 F 10/20/18 10:00 Pulse Rate 80 10/20/18 10:00 Respiratory Rate 20 10/20/18 10:00 Blood Pressure 144/90 10/20/18 10:00 O2 Sat by Pulse Oximetry (%) 98 10/20/18 10:00 Labs: CBC, BMP 10/20/18 05:30 10/20/18 05:30 Discharge Summary Reason For Visit: MULTI NODULAR THYROID GOITER,PPOST OP, Current Active Problems S/P thyroidectomy (Acute) Condition: Improved - Instructions Diet, Activity, Other Instructions: Regular diet, activity :ambulate at [place]. Follow up in my office on , 10/24/2018, at 4.30 pm. Disposition: HOME - Home Medications Comprehensive Discharge Medication List: Ambulatory Orders Atorvastatin Ca [Lipitor -] 40 mg PO HS 03/24/14 Ergocalciferol [Drisdol -] 50,000 unit PO WEEKLY 03/24/14 Vitamin B Complex [B Complex] 1 each PO DAILY 03/24/14 Budesonide/Formeterol Fumarate [SYMBICORT 160/4.5mcg -] 1 inhaler IH BID Losartan Potassium 100 mg PO DAILY 02/08/18 Nifedipine [Nifedipine ER] 60 mg PO DAILY 02/08/18 Pantoprazole Sodium 40 mg PO DAILY 02/08/18 Albuterol Sulfate Inhaler - [Ventolin Hfa Inhaler -] 1 - 2 inh PO PRN 10/17/18 Aspirin Coated [Ecotrin -] 81 mg PO DAILY 10/17/18 Cyclobenzaprine HCl [Flexeril 10 mg] 10 mg PO PRN PRN 10/17/18 Mirtazapine [Remeron -] 15 mg PO DAILY 10/17/18
--- NOTE | 2018-10-20 14:46 | DS ---
Physical Examination Vital Signs: Vital Signs Temperature 98.4 F 10/20/18 10:00 Pulse Rate 80 10/20/18 10:00 Respiratory Rate 20 10/20/18 10:00 Blood Pressure 144/90 10/20/18 10:00 O2 Sat by Pulse Oximetry (%) 98 10/20/18 10:00 Findings/Remarks: pain in neck has improved. no fever or chills, cough and expectorationand swallowing improved . Exam : NAD, Awake, calm lower neck transverse scar with no erythema or discharge. CV: Regular rhythm, tachy , no MRG Lungs: scattered wheezes. good air entry Abd: soft, TTP in all quadrants , nl BS , no rebound tenderness . Ext: no edema or erythema, no tremor seen. No signs of fungal infection Labs: CBC, BMP 10/20/18 05:30 10/20/18 05:30 Discharge Summary Reason For Visit: MULTI NODULAR THYROID GOITER,PPOST OP, Current Active Problems S/P thyroidectomy (Acute) Hospital Course: 53 y/o lady with h/o HTN, multinodular goiter, L shoulder pain, anxiety , poor appetite, who presented to hospital for subtotal thyroidectomy . Medicine team was asked to evaluate for medication management. the pastient was admitted for her sx and next day she was discharged, but had pain and did not feel comfortable leaving. she was also very anxious and developed an high blood pressure with tachycardia. her TSH and T4 were checked to r/o thyrotoxicosis . they were normal and endocrine did not recommend starting any hormon replacement therapy at this time. BP and heart rate improved and she was taken off propranolol and placed on her home meds at ne. her LFTS were found to be elevated, which was a change form prior. US was done t show fatty liver and a liver lesion ( known to have hemangioma, followed by Dr. Sahni). pre-westfall read of her US was available at time of ne. she was asked to follow with Dr. Sahni, she has appointment with him in few days . dispo : [place] home condition : improved f/u Dr. souza, Dr. Powers, PCP, and Dr. aShni Condition: Improved - Instructions Diet, Activity, Other Instructions: Regular diet, activity :ambulate at [place]. Follow up in Dr. Souza office on , 10/24/2018, at 4.30 pm. follow up with Dr. Powers within few days report any fever , chills, worsening pain or difficulty swallowing to your doctor - follow up with Dr. Sahni as scheduled before follow with your PCP in a week Referrals: Leandro Sahni MD [Staff Physician] - Christopher Powers MD [Staff Physician] - Elsie Souza MD [Staff Physician] - Disposition: HOME - Home Medications Comprehensive Discharge Medication List: Ambulatory Orders Atorvastatin Ca [Lipitor] 40 mg PO HS 03/24/14 Ergocalciferol [Vitamin D2] 50,000 unit PO WEEKLY 03/24/14 Vitamin B Complex [B Complex] 1 each PO DAILY 03/24/14 Budesonide/Formeterol Fumarate [SYMBICORT 160/4.5mcg -] 1 inhaler IH BID Losartan Potassium 100 mg PO DAILY 02/08/18 Nifedipine [Nifedipine ER] 60 mg PO DAILY 02/08/18 Pantoprazole Sodium 40 mg PO DAILY 02/08/18 Albuterol Sulfate Inhaler - [Ventolin HFA Inhaler -] 1 - 2 inh PO PRN 10/17/18 Aspirin Coated [Ecotrin -] 81 mg PO DAILY 10/17/18 Cyclobenzaprine HCl [Flexeril 10 mg] 10 mg PO PRN PRN 10/17/18 Mirtazapine [Remeron -] 15 mg PO DAILY 10/17/18 Acetaminophen [Tylenol .Regular Strength -] 650 mg PO Q6H PRN tablet 10/20/18 Ibuprofen [Motrin -] 400 mg PO Q8H PRN #20 tablet 10/20/18 Montelukast Sodium [Singulair] 10 mg PO DAILY #30 tablet 10/20/18 This patient is new to me today: No Emergency Visit: Yes ED Registration Date: 10/19/18 Care time: The patient presented to the Emergency Department on the above date and was hospitalized for further evaluation of their emergent condition. Critical Care patient: No - Discharge Referral Referred to [facility] Med [facility] No
[2018-10-20] MEDS ORDERED: POLYETHYLENE GLYCOL 3350 119 GM BTL PO ONE (19:42)
[2018-10-20] MEDS: MIRTAZAPINE 15 MG TABLET (FP) PO SCH (21:46)
[2018-10-20] MEDS: ATORVASTATIN CA 40 MG TABLET (FP) PO SCH (21:46)
--- NOTE | 2018-10-20 21:48 | EKG ---
Test Reason : Blood Pressure : / mmHG Vent. Rate : 083 BPM Atrial Rate : 083 BPM P-R Int : 134 ms QRS Dur : 090 ms QT Int : 368 ms P-R-T Axes : 060 060 023 degrees QTc Int : 432 ms NORMAL SINUS RHYTHM POSSIBLE LEFT ATRIAL ENLARGEMENT BORDERLINE ECG NO PREVIOUS ECGS AVAILABLE Confirmed by ELIZABETH HOLGUIN, DIANA ([id number]) on 10/20/2018 9:48:04 PM Referred By: Confirmed By:DIANA JOHNSON MD
[2018-10-21] MEDS ORDERED: PT OWN MED DRAWER 7, Y5N ONE (09:05)
[2018-10-21] MEDS: NIFEdipine E.R 60 MG TABLET (UD) PO SCH (09:08)
[2018-10-21] MEDS: ASPIRIN COATED 81 MG TABLET.EC PO SCH (09:08)
[2018-10-21] MEDS: BUDESONIDE/FORMETEROL FUMARATE 160/4.5 mcg INHALER IH SCH (09:09)
[2018-10-21] MEDS: PANTOPRAZOLE 40 MG TABLET (FP) PO SCH (09:09)
[2018-10-21] MEDS: VITAMIN B COMPLEX W/C COMBO TABLET (FP) PO SCH (09:09)
[2018-10-21] MEDS ORDERED: LOSARTAN POTASSIUM 50 MG TABLET (FP) PO SCH (10:00)
[2018-10-21 12:29] VITALS: BP 144/82; PULSE 69; TEMP 98.4
--- NOTE | 2018-10-24 09:30 | PATH ---
Surgical Pathology Report Patient Name: RIO PAUL [facility]. Rec. #: [id number] /Age/Gender: 1965 (Age: 53) / F Account: [id number] Location: 4 W TELEMETRY U Taken: 10/18/2018 Received: 10/18/2018 Reported: 10/24/2018 Physicians: Apurva Pascual M.D. Specimen(s) Received RT TOTAL THYROID, ISTHMUS, PARTIAL LEFT LOBECTOMY Clinical History Multinodular thyroid goiter Final Diagnosis THYROID, RIGHT TOTAL THYROID LOBECTOMY, ISTHMUSECTOMY, LEFT PARTIAL LOBECTOMY: THYROID TISSUE WITH FOLLICULAR ADENOMA. Comment: Benign nodule enveloped by thin fibrous capsule. No evidence of capsular or vascular invasion. No papillary nuclear features present. 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 Electronically Signed Coco Ordoñez M.D. Gross Description Received fresh labeled "right total thyroid lobectomy, isthmusectomy, left partial lobectomy," is an 11 g thyroidectomy specimen including a 3.5 x 2.0 x 1.8 cm intact right lobe, an attached 1.0 x 0.9 x 0.3 cm isthmus and an attached 2.5 x 2.0 x 1.2 cm portion of left inferior lobe. The outer capsule is red-brown and mostly intact. The right lobe is inked red, the isthmus is inked green and the left lobe is inked blue. Sectioning reveals a 1.3 cm in greatest dimension hemorrhagic nodule in the superior pole of the right lobe. The remaining thyroid parenchyma is red-brown and beefy. After discussion of the case with the surgeon, no frozen section is performed. The specimen is entirely submitted in 13 cassettes as follows: 1-7-right lobe sequentially from superior to inferior (nodule in cassettes 1-3); 8-9-isthmus from left to right; 10-13-left lobe sequentially from superior to inferior. /10/18/2018 saudi/10/18/2018
== END 2018-10-21 12:04 | disposition home or self-care (01) ==
LOC: JASUSAT 10:03 → J8W 16:15 → J4W 10-19 18:29 → JASUSAT 10-19 18:29
PROVIDERS: ADMIT Internal Medicine; ATTEND Specialist
PROC: 0GTH0ZZ Resection of Right Thyroid Gland Lobe, Open Approach (ICD-10-PCS; principal; 2018-10-19)
PROC: 0GBG0ZZ Excision of Left Thyroid Gland Lobe, Open Approach (ICD-10-PCS; 2018-10-19)
PROC: 0GBJ0ZZ Excision of Thyroid Gland Isthmus, Open Approach (ICD-10-PCS; 2018-10-19)
DX: E04.2 Nontoxic multinodular goiter (principal); R13.19 Other dysphagia; I10 Essential (primary) hypertension; E78.5 Hyperlipidemia, unspecified; K21.9 Gastro-esophageal reflux disease without esophagitis; J45.909 Unspecified asthma, uncomplicated; I16.0 Hypertensive urgency; F17.210 Nicotine dependence, cigarettes, uncomplicated; Z79.82 Long term (current) use of aspirin; K81.9 Cholecystitis, unspecified; G89.4 Chronic pain syndrome; M67.471 Ganglion, right ankle and foot; M25.512 Pain in left shoulder
CPT/HCPCS: 36415; 76705-TC; 80048; 80053; 84436; 84439; 84443; 85025; 88307-TC; 93005; 93010; 94640; 94760; G0378; J0131; J7030

== ENCOUNTER 2020-05-06 08:56 | Emergency (ER) | payer OTHER ==
[2020-05-06 09:07] VITALS: BP 185/89; PULSE 88; TEMP 98.1; BMI 25.9
== END 2020-05-06 09:50 | disposition home or self-care (01) ==
LOC: JER 08:56
DX: T16.2XXA Foreign body in left ear, initial encounter (principal)
CPT/HCPCS: 99282-25

== ENCOUNTER 2020-10-26 14:45 | Emergency (ER) | payer OTHER ==
[2020-10-26 15:38] VITALS: BMI 25.9
[2020-10-26 15:53] LABS: BASO % 5.3 % (0-2.0); EOS % 0.9 % (0-4.5); HEMATOCRIT 39.2 % (32.4-45.2); HEMOGLOBIN 13.6 GM/dL (10.7-15.3); LYMPH % 29.5 % (8-40); MCH 32.5 pg (25.7-33.7); MCHC 34.7 g/dl (32.0-36.0); MEAN CELL VOLUME 93.6 fl (80-96); MEAN PLT VOLUME 8.6 fl (7.5-11.1); MONO % 8.1 % (3.8-10.2); NEUT % 56.2 % (42.8-82.8); PLATELET COUNT 334 K/MM3 (134-434); RBC 4.18 M/mm3 (3.60-5.2); RDW 13.8 % (11.6-15.6); WHITE BLOOD COUNT 6.3 K/mm3 (4.0-10.0)
[2020-10-26 15:59] LABS: INR 1.05 (0.83-1.09); PROTHROMBIN TIME (PATIENT) 12.7 SEC (9.7-13.0)
[2020-10-26 16:02] LABS: ACTIVATED PTT 31.6 SECONDS (25.2-36.5)
[2020-10-26 16:17] LABS: CHLORIDE 106 mmol/L (98-107); SODIUM 138 mmol/L (136-145)
[2020-10-26 16:19] LABS: CALCIUM 9.3 mg/dL (8.5-10.1)
[2020-10-26 16:20] LABS: ALBUMIN 3.9 g/dl (3.4-5.0); ANION GAP 5 MMOL/L (8-16); CO2 28 mmol/L (21-32); GLUCOSE,RANDOM 96 mg/dL (74-106)
[2020-10-26 16:23] LABS: BLOOD UREA NITROGEN 11.1 mg/dL (7-18); CHOLESTEROL 202 mg/dL (50-200); CREATININE 0.8 mg/dL (0.55-1.3); SGOT/AST 14 U/L (15-37); SGPT/ALT 19 U/L (13-61)
[2020-10-26 16:24] LABS: BILIRUBIN,TOTAL 0.3 mg/dL (0.2-1); LDL CHOLESTEROL (ONLY SJRH) 109 mg/dL (5-100)
[2020-10-26 16:25] LABS: ALK PHOS 148 U/L (45-117); TOT PROT 7.5 g/dl (6.4-8.2); TRIGLYCERIDES 93 mg/dL (0-150)
[2020-10-26] MEDS ORDERED: SODIUM CHLORIDE 0.9% 500 ML INFUS.BAG IV ONE (16:25)
[2020-10-26] MEDS ORDERED: ASPIRIN 81 MG CHEWABLE TABLETS PO ONE (16:25)
[2020-10-26 16:26] LABS: HDL CHOLESTEROL 66 mg/dL (40-60)
[2020-10-26] MEDS ORDERED: ASPIRIN 81 MG CHEWABLE TABLETS ONE (16:31)
[2020-10-26 16:49] VITALS: BP 118/72; PULSE 79; TEMP 98.1
== END 2020-10-26 16:50 | disposition short-term general hospital (02) ==
LOC: JER 14:45
DX: I63.231 Cerebral infarction due to unspecified occlusion or stenosis of right carotid arteries (principal)
CPT/HCPCS: 36415; 70450-TC; 70496-TC; 70498-TC; 80053; 80061; 82550; 82962; 83721; 84443; 84484; 84703; 85025; 85610; 85730; 86850; 86900; 86901; 93005; 93010; 99291; C9803; U0003; U0005

== ENCOUNTER 2020-11-09 11:53 | Emergency (ER) | payer OTHER ==
[2020-11-09 12:05] VITALS: TEMP 97.7; BMI 25.0
[2020-11-09] MEDS ORDERED: levETIRAcetam 500 MG/5 ML INJECTION VIAL IVPB ONE ×2 (13:21→13:36)
[2020-11-09 14:11] LABS: BASO % 0.8 % (0-2.0); EOS % 1.5 % (0-4.5); HEMATOCRIT 34.7 % (32.4-45.2); HEMOGLOBIN 12.1 GM/dL (10.7-15.3); LYMPH % 17.7 % (8-40); MCH 32.6 pg (25.7-33.7); MCHC 34.8 g/dl (32.0-36.0); MEAN CELL VOLUME 93.6 fl (80-96); MEAN PLT VOLUME 8.7 fl (7.5-11.1); MONO % 8.5 % (3.8-10.2); NEUT % 71.5 % (42.8-82.8); PLATELET COUNT 377 K/MM3 (134-434); RBC 3.71 M/mm3 (3.60-5.2); RDW 13.9 % (11.6-15.6); WHITE BLOOD COUNT 10.5 K/mm3 (4.0-10.0)
[2020-11-09 14:16] LABS: INR 1.16 (0.83-1.09)
[2020-11-09 14:22] LABS: CHOLESTEROL 153 mg/dL (50-200); TRIGLYCERIDES 84 mg/dL (0-150)
[2020-11-09 14:24] LABS: LDL CHOLESTEROL (ONLY SJRH) 79 mg/dL (5-100)
[2020-11-09 14:25] LABS: HDL CHOLESTEROL 57 mg/dL (40-60)
[2020-11-09 14:27] VITALS: BP 99/69; PULSE 82
[2020-11-09 14:42] LABS: CHLORIDE 101 mmol/L (98-107); SODIUM 135 mmol/L (136-145)
[2020-11-09 14:44] LABS: ALBUMIN 3.6 g/dl (3.4-5.0); ANION GAP 8 MMOL/L (8-16); CALCIUM 9.2 mg/dL (8.5-10.1); CO2 26 mmol/L (21-32)
[2020-11-09 14:45] LABS: BLOOD UREA NITROGEN 12.1 mg/dL (7-18); GLUCOSE,RANDOM 90 mg/dL (74-106)
[2020-11-09 14:47] LABS: SGOT/AST 29 U/L (15-37); SGPT/ALT 31 U/L (13-61)
[2020-11-09 14:48] LABS: CREATININE 0.6 mg/dL (0.55-1.3)
[2020-11-09 14:49] LABS: BILIRUBIN,TOTAL 0.5 mg/dL (0.2-1); TOT PROT 7.2 g/dl (6.4-8.2)
[2020-11-09 14:50] LABS: ALK PHOS 131 U/L (45-117)
[2020-11-09 17:15] LABS: PH,URINE 6.5 (5.0-8.0); URINE APPEARANCE CLEAR; URINE BILIRUBIN NEGATIVE (NEGATIVE); URINE COLOR YELLOW; URINE GLUCOSE (UA) NEGATIVE (NEGATIVE); URINE KETONE NEGATIVE (NEGATIVE); URINE LEUK ESTERASE NEGATIVE (NEGATIVE); URINE NITRITE NEGATIVE (NEGATIVE); URINE PROTEIN NEGATIVE (NEGATIVE); URINE UROBILINOGEN 0.2 mg/dL (0.2-1.0)
== END 2020-11-09 14:28 | disposition short-term general hospital (02) ==
LOC: JER 11:53
PROC: 3E033GC Introduction of Other Therapeutic Substance into Peripheral Vein, Percutaneous Approach (ICD-10-PCS; principal; 2020-11-09)
DX: I60.9 Nontraumatic subarachnoid hemorrhage, unspecified (principal)
CPT/HCPCS: 36415; 70450-TC; 72125-TC; 80053; 80061; 81003; 82550; 82962; 83721; 84484; 85025; 85610; 85730; 86850; 86900; 86901; 99285-25

== ENCOUNTER 2021-07-01 04:22 | Day surgery (SDC) | payer OTHER ==
[2021-06-30 08:26] VITALS: BMI 26.5
[2021-07-01] MEDS ORDERED: DEXAMETHASONE SOD PHOSPHATE 10 MG/1 ML VIAL ONE (07:11)
[2021-07-01] MEDS ORDERED: BUPIVACAINE HCL/PF 0.25% (2.5MG/ML) 10 ML VIAL ONE (07:11)
[2021-07-01] MEDS ORDERED: BUPIVACAINE HCL/PF 0.5% (5MG/ML) 10 ML VIAL ONE (07:11)
[2021-07-01] MEDS ORDERED: BUPIVACAINE HCL/PF 0.75% 10 ML VIAL ONE (07:12)
[2021-07-01] MEDS ORDERED: LIDOCAINE HCL/PF 2% SDV 5ML VIAL ONE (07:13)
[2021-07-01] MEDS ORDERED: TRIAMCINOLONE ACET 40MG/1ML VIAL ONE (08:36)
[2021-07-01] MEDS ORDERED: LIDOCAINE 1% P/F 10 MG/ML VIAL INF ONE (08:49)
[2021-07-01] MEDS ORDERED: IOHEXOL 180 MG/1 ML ML IJ ONE (08:50)
[2021-07-01] MEDS ORDERED: BUPIVACAINE HCL/PF 0.5% (5MG/ML) 10 ML VIAL IJ ONE (08:50)
[2021-07-01] MEDS ORDERED: TRIAMCINOLONE ACETONIDE 40 MG/ML 10 ML VIAL IJ ONE (08:51)
[2021-07-01 09:18] VITALS: TEMP 98.7
[2021-07-01 10:24] VITALS: BP 137/70; PULSE 101
== END 2021-07-01 09:50 | disposition home or self-care (01) ==
LOC: JASU-SURG 04:22
PROVIDERS: ATTEND Pain Medicine Pain Medicine
PROC: 3E0U3BZ Introduction of Anesthetic Agent into Joints, Percutaneous Approach (ICD-10-PCS; 2021-07-01)
PROC: 3E0U33Z Introduction of Anti-inflammatory into Joints, Percutaneous Approach (ICD-10-PCS; principal; 2021-07-01 08:00)
DX: M53.3 Sacrococcygeal disorders, not elsewhere classified (principal)
CPT/HCPCS: 76000-TC-FY; J1100

== ENCOUNTER 2023-04-03 13:35 | Emergency (ER) | payer OTHER ==
[2023-04-03 13:43] VITALS: BP 153/76; PULSE 75; RESP 18; TEMP 97.9; BMI 25.6
[2023-04-03] MEDS ORDERED: ALBUTEROL SO4 2.5/IPRATROPIUM 0.5 INH SOL 3 ML VIAL.NEB. NEB ONE ×3 (14:57→16:16)
[2023-04-03] MEDS ORDERED: ACETAMINOPHEN 1000 MG/100 ML BAG IVPB ONE (14:57)
[2023-04-03] MEDS ORDERED: ACETAMINOPHEN INJECTION 100 ML IVPB ONE (16:16)
[2023-04-03 16:41] LABS: HEMATOCRIT 44.4 % (32.4-45.2); HEMOGLOBIN 15.3 GM/dL (10.7-15.3); MCH 32.2 pg (25.7-33.7); MCHC 34.6 g/dl (32.0-36.0); MEAN CELL VOLUME 93.1 fl (80-96); RBC 4.77 M/mm3 (3.60-5.2); RDW 14.6 % (11.6-15.6); WHITE BLOOD COUNT 5.3 K/mm3 (4.0-10.0)
[2023-04-03 16:42] LABS: BASO % 0.6 % (0-2.0); LYMPH % 50.7 % (8-40); MONO % 5.9 % (3.8-10.2); NEUT % 41.8 % (42.8-82.8)
[2023-04-03 16:44] LABS: INR 1.16 (0.83-1.09); PROTHROMBIN TIME (PATIENT) 13.4 SEC (9.7-13.0)
[2023-04-03 16:47] LABS: ACTIVATED PTT 35.3 SECONDS (25.2-36.5)
[2023-04-03 16:53] LABS: POTASSIUM 5.2 mmol/L (3.5-5.1)
[2023-04-03 16:55] LABS: CALCIUM 9.5 mg/dL (8.5-10.1)
[2023-04-03 16:56] LABS: BLOOD UREA NITROGEN 13.7 mg/dL (7-18)
[2023-04-03 16:59] LABS: CREATININE 0.6 mg/dL (0.55-1.3)
[2023-04-03 17:01] LABS: BILIRUBIN,TOTAL 0.7 mg/dL (0.2-1); TOT PROT 8.2 g/dl (6.4-8.2)
[2023-04-03 18:38] LABS: MEAN PLT VOLUME 8.9 fl (7.5-11.1); PLATELET COUNT 398 10^3/uL (134-434)
== END 2023-04-03 19:57 | disposition home or self-care (01) ==
LOC: JER 13:35
PROC: 3E033NZ Introduction of Analgesics, Hypnotics, Sedatives into Peripheral Vein, Percutaneous Approach (ICD-10-PCS; principal; 2023-04-03)
PROC: 3E0F7GC Introduction of Other Therapeutic Substance into Respiratory Tract, Via Natural or Artificial Opening (ICD-10-PCS; 2023-04-03)
DX: R51.9 Headache, unspecified (principal); R74.01 Elevation of levels of liver transaminase levels; W01.0XXA Fall on same level from slipping, tripping and stumbling without subsequent striking against object, initial encounter; Y93.01 Activity, walking, marching and hiking; Y92.038 Other place in apartment as the place of occurrence of the external cause; Z20.822 Contact with and (suspected) exposure to COVID-19
CPT/HCPCS: 0241U-QW; 36415; 70450-TC; 71046-TC-FY; 72125-TC; 73130-TC-RT-FY; 80053; 85025; 85610; 85730; 86850; 86900; 86901; 99285-25